=== PATIENT | female | born 1985 | race African-American/Black ===

== ENCOUNTER 2019-03-23 11:02 | Emergency (ER) | payer MEDICAID ==
[~2019-03-23] VITALS: Ht 170.2 cm; Wt 97.9 kg
[2019-03-23] MEDS ORDERED: KETOROLAC 60MG/2ML VIAL IM STA (13:37)
[2019-03-23 15:49] VITALS: BP 125/71
== END 2019-03-23 15:49 | disposition home or self-care (01) ==
LOC: ER 11:13
DX: M25.561 Pain in right knee (principal); F17.200 Nicotine dependence, unspecified, uncomplicated; Z98.890 Other specified postprocedural states
CPT/HCPCS: 73562; 81025; 96372; 99283; J1885; Z7610

== ENCOUNTER 2020-04-18 04:31 | Emergency (ER) | payer MEDICAID, OTHER ==
[~2020-04-18] VITALS: Ht 167.6 cm; Wt 82.0 kg
[2020-04-18 04:55] VITALS: BP 142/80
[2020-04-18] MEDS ORDERED: ACETAMINOPHEN 325MG TABLET PO ONE (06:45)
== END 2020-04-18 10:20 | disposition home or self-care (01) ==
LOC: ER 04:31
DX: T16.2XXA Foreign body in left ear, initial encounter (principal); X58.XXXA Exposure to other specified factors, initial encounter; Y93.9 Activity, unspecified; Y92.9 Unspecified place or not applicable
CPT/HCPCS: 99283

== ENCOUNTER 2021-03-11 15:44 | Emergency (ER) | payer MEDICAID, OTHER ==
[~2021-03-11] VITALS: Ht 170.2 cm; Wt 86.0 kg
[2021-03-11] MEDS ORDERED: IBUPROFEN 800MG TABLET PO ONE (17:30)
[2021-03-11] MEDS ORDERED: IBUP-2029 MT (17:35)
[2021-03-11 17:41] VITALS: BP 148/91
== END 2021-03-11 18:02 | disposition home or self-care (01) ==
LOC: ER 15:44
DX: Z13.9 Encounter for screening, unspecified (principal)
CPT/HCPCS: 81025; 99283

== ENCOUNTER 2021-08-28 09:28 | Emergency (ER) | payer OTHER ==
[~2021-08-28] VITALS: Ht 170.2 cm; Wt 91.0 kg
[~2021-08-28 09:28] MED LIST: IBUP-2029 MT
[2021-08-28 09:33] VITALS: BP 143/93
== END 2021-08-28 11:12 | disposition home or self-care (01) ==
LOC: ER 09:28
DX: K62.5 Hemorrhage of anus and rectum (principal)
CPT/HCPCS: 99281

== ENCOUNTER 2022-11-05 17:38 | Emergency (ER) | payer MEDICAID, OTHER ==
[~2022-11-05] VITALS: Ht 167.6 cm; Wt 86.0 kg
[2022-11-05 17:59] VITALS: BP 152/96
== END 2022-11-05 21:46 | disposition home or self-care (01) ==
LOC: ER 18:29
DX: Z03.89 Encounter for observation for other suspected diseases and conditions ruled out (principal)
CPT/HCPCS: 99281